=== PATIENT | male | born 1990 | race African-American/Black ===

== ENCOUNTER 2024-09-04 10:39 | Emergency (ER) | payer OTHER ==
[~2024-09-04] VITALS: Ht 175.3 cm; Wt 91.4 kg
--- NOTE | 2024-09-04 12:23 | ED.PDOC ---
History of Present Illness HPI Comments 33 year old male with no past medical history presents to the emergency department with a chief complaint of fever onset 1 week. Patient states he has been experiencing intermittent fevers for the past week as well as headache, body aches, abdominal pain, bilateral ear pain, chills, testicular pain. Patient took Ibuprofen for pain with no improvement of symptoms. He has been sexually active with multiple partners, does not use protection. No other symptoms or modifying factors present at this time. Denies nausea vomiting diarrhea Denies dysuria urgency frequency Denies history of UTI Denies blood in the urine or semen Denies recent instruments/toys and urethra Denies current tobacco use Denies family history of prostate issues Chief Complaint: Flu like Time Seen by MD: 12:15 Reviewed Notes: Nurses Notes, Medications, Allergies Information Source: Patient Mode of Arrival: Ambulatory Timing: Weeks Duration: Since onset Prehospital treatment: Pain Meds Severity: Moderate Context: Recent: Sore throat, Otitis media Symptoms: Fever, Chills, Ear pain, Sore throat Modifying Factors: Ibuprofen Associated Signs and Symptoms: Headache, Abdominal Pain Past Medical History PAST MEDICAL HISTORY: Denies Surgical History: Denies all surgeries Family History Family History: Unobtainable Social History Smoker: Non-Smoker Alcohol: Denies ETOH Use Drugs: Denies Drug Use Lives In: Home All Other Systems: Reviewed and Negative (as per HPI) Physical Exam General Appearance: Normal HEENT: Normal ENT Inspection, Pharynx Normal, TMs Normal Neck: Full Range of Motion, Non-Tender, Normal, Normal Inspection Respiratory: Chest Non-Tender, Lungs Clear, No Accessory Muscle Use, No Respiratory Distress, Normal Breath Sounds Cardiovascular: No Edema, No JVD, No Murmur, No Gallop, Normal Peripheral Pulses, Regular Rate/Rhythm Breast Exam: Deferred Gastrointestinal: No Organomegaly, Non Tender, No Pulsatile Mass, Normal Bowel Sounds, Soft Genitalia: Testicle (with no erythema, swelling, TTP, no high riding testie) Pelvic: Deferred Rectal: Deferred Extremities: No calf tenderness, Normal capillary refill, Normal inspection, Normal range of motion, Non-tender, No pedal edema Musculoskeletal : Apperance: Normal Neurologic: Alert, psychology fellow II-XII nml as Tested, No Motor Deficits, Normal Affect, Normal Mood, No Sensory Deficits Cerebellar Function: Normal Reflexes: Normal Skin: Dry, Normal Color, Warm Lymphatic: No Adenopathy Was a procedure done? Was a procedure done?: No X-Ray, Labs, Meds, VS Vital Signs Date Time Temp Pulse Resp B/P (MAP) Pulse Ox O2 Delivery O2 Flow Rate FiO2 09/04/24 13:28 98.0 95 18 157/114 (128) 97 98.0 09/04/24 10:45 97.6 98 18 161/110 (127) 97 97.6 Lab Test 09/04/24 13:04 09/04/24 12:00 Range/Units White Blood Count 12.2 H 4.4-10.8 10^3/uL Red Blood Count 6.91 H 4.5-5.90 10^6/uL Hemoglobin 16.3 13.5-17.5 g/dL Hematocrit 49.4 41.0-53.0 % Mean Corpuscular Volume 71.4 L 80.0-100.0 fL Mean Corpuscular Hemoglobin 23.6 L 28.0-32.0 pg Mean Corpuscular Hemoglobin Concent 33.0 32.0-36.0 g/dL Red Cell Distribution Width 15.7 H 11.8-14.3 % Platelet Count 480 H 140-450 10^3/uL Mean Platelet Volume 7.5 6.9-10.8 fL Neutrophils (%) (Auto) 66.1 37.0-80.0 % Lymphocytes (%) (Auto) 22.4 10.0-50.0 % Monocytes (%) (Auto) 9.9 0.0-12.0 % Eosinophils (%) (Auto) 0.8 0.0-7.0 % Basophils (%) (Auto) 0.8 0.0-2.0 % Neutrophils # (Auto) 8.0 1.6-8.6 10 ^3/uL Lymphocytes # (Auto) 2.7 0.4-5.4 10 ^3/uL Monocytes # (Auto) 1.2 0-1.3 10 ^3/uL Eosinophils # (Auto) 0.1 0-0.8 10 ^3/uL Basophils # (Auto) 0.1 0-0.2 10 ^3/uL Nucleated Red Blood Cells 0.0 % Sodium Level 138 136-145 mmol/L Potassium Level 4.6 3.5-5.1 mmol/L Chloride Level 102 98-107 mmol/L Carbon Dioxide Level 30 20-31 mmol/L Anion Gap 6 5-15 Blood Urea Nitrogen 10 9-23 mg/dL Creatinine 1.33 H 0.700-1.30 mg/dL Glomerular Filtration Rate Calc 72 >90 mL/min BUN/Creatinine Ratio 7.5 L 10.0-20.0 Serum Glucose 111 H 74-106 mg/dL Calcium Level 11.0 H 8.7-10.4 mg/dL Total Bilirubin 0.5 0.2-1.0 mg/dL Aspartate Amino Transferase (AST) 27 13-40 U/L Alanine Aminotransferase (ALT) 74 H 7-40 U/L Alkaline Phosphatase 129 H 46-116 U/L Total Protein 9.0 H 5.7-8.2 g/dL Albumin 5.5 H 3.2-4.8 g/dL Lipase 29 12-53 U/L Urine Color Light-yellow Yellow Urine Clarity Clear Clear Urine pH 5.5 5.0-9.0 Urine Specific [place] 1.016 1.001-1.035 Urine Protein 1+ H Negative Urine Ketones Negative Negative Urine Blood 1+ H Negative /uL Urine Nitrite Negative Negative Urine Bilirubin Negative Negative Urine Urobilinogen Normal Negative mg/dL Urine Leukocyte Esterase Negative Negative /uL Urine RBC 37 0 - 3 /hpf Urine Microscopic WBC 1 0-3 /HPF Urine Squamous Epithelial Cells Few <5 /hpf Urine Bacteria None seen None Seen /hpf Urine Glucose Normal Normal mg/dL Chlamydia trachomatis (ERICKSON) Pending Neisseria gonorrhoeae ([facility]ICKSON) Pending [place] [id number] Ph: [phone] DIAGNOSTIC IMAGING Diagnostic Imaging Report : [id number] Signed PATIENT: BULMARO NOYOLA ACCT: [id number] UNIT: [id number] : 1990 LOC: ER ROOM / BED: / AGE / SEX: 33 / M ADM STATUS: REG ER SERVICE 1220 ORDERING PHYSICIAN: EREN DOTSON NP PROCEDURE(s): TESUS - TESTICULAR ULTRASOUND REASON: Testicular pain ORDER NUMBER(s): [id number], ACCESSION NUMBER(s): [id number] ULTRASOUND OF SCROTUM AND CONTENTS. INDICATION: Testicular pain COMPARISON: None TECHNIQUE: Multiple real-time grayscale sonographic and color and duplex Doppler images of the scrotum and its contents were obtained. FINDINGS: The right testicle measures 4 cm. The left testicle measures 4 cm. Both testicles demonstrate homogeneous echotexture without evidence of focal lesions. The right epididymal head measures 1.6 cm. The left epididymal head measures 1.2 cm. Subsequent color and duplex Doppler interrogation of the testes demonstrated symmetric normal vascular flow to both testicles. No focal areas of hyperemia were seen. Bilateral microlithiasis. Small bilateral hydroceles. IMPRESSION: 1. No evidence of torsion, epididymitis, and/or orchitis. ATED BY: MARIANO ROJAS MD DICTATED DATE/TIME: 09/04/241320 SIGNED BY: MARIANO ROJAS MD SIGNED DATE/TIME: 09/04/241320 CC: X-Ray, Labs, Meds, VS Comment 33 year old male with no past medical history presents to the emergency department with a chief complaint of fever onset 1 week. Patient arrives alert and oriented, ABC's intact, afebrile, vital signs stable, saturating well in room air labs were ordered. CBC was ordered to exclude anemia, blood loss, or infection. CMP was ordered to exclude electrolyte abnormalities, renal failure, dehydration, hyperglycemia and/or liver enzyme abnormalities. Urinalysis was ordered to rule out UTI or hematuria. Lipase was ordered. Diagnostic imaging ordered by me and results interpreted by radiology : US TESTICULAR: IMPRESSION: 1. No evidence of torsion, epididymitis, and/or orchitis. Labs in the ED showed (pertinent+ and then pertinent-) Additional MDM Review of External, Non-ED records: External records reviewed. Discussion with independent historian (EMS, family) history obtained from the patient/parents (if applicable) at bedside Chronic conditions affecting care: None Social determinants of health affecting care: None Consideration of admission (observation or admission): I considered escalation of care to admission for this patient, however given the reassuring workup, the patient is safe for outpatient management. Time of 1ST Reevaluation: 12:45 Reevaluation 1ST: Improved Patient Education/Counseling: Diagnosis, Treatment Family Education/Counseling: No Family Present SEPSIS Sepsis Screen Date sepsis recognized/suspect: Sep 04, 2024 Time Sepsis recognized/suspect: 1044 Recent Procedure: No On Antibiotic Therapy: No Respiratory Rate >20: No Heart Rate >90: Yes Temp<36 C (96.8 F) or >38.3 C: No SBP <90 or MAP <65 mmHG: No New Acute Mental Status Change: No Is the patient on CPAP, BIPAP,: No Physician Orders Chlamydia/Gc Amplification (09/04/24 12:20) Testicular Ultrasound (09/04/24 12:20) Vital Signs Date Time Temp Pulse Resp B/P (MAP) Pulse Ox O2 Delivery O2 Flow Rate FiO2 09/04/24 13:28 98.0 95 18 157/114 (128) 97 98.0 09/04/24 10:45 97.6 98 18 161/110 (127) 97 97.6 Laboratory Tests Test 09/04/24 13:04 White Blood Count 12.2 10^3/uL (4.4-10.8) H Departure 1 Departure Time of Disposition: 14:56 Impression: Primary Impression: Viral syndrome Disposition: 01 HOME / SELF CARE / HOMELESS Condition: Fair e-Prescriptions Naproxen (Naproxen) 500 Mg Tab 500 MG PO BIDPC for 10 Days, #20 TAB 0 Refills Prov: EREN DOTSON ORDER PROCESSING CLERK 09/04/24 Amoxicillin & Pot Clavulanate (AUGMENTIN TABLET) 875 Mg Tb 875 MG PO BID for 7 Days, #14 TAB 0 Refills Prov: EREN DOTSON ORDER PROCESSING CLERK 09/04/24 Critical Care Note Critical Care Time?: No Stability Stability form required: No Heart Score Heart Score: Heart Score Response (Comments) Value History N/A 0 EKG N/A 0 Age N/A 0 Risk Factors N/A 0 Troponin N/A 0 Total 0 I personally scribed for EREN DOTSON ORDER PROCESSING CLERK ([email or web address]) on 09/04/24 at 12:23. Electronically submitted by Ana Luisa Bender ([email or web address]). I personally scribed for EREN DOTSON NP ([email or web address]) on 09/04/24 at 12:29. Electronically submitted by Ana Luisa Bender ([email or web address]). I personally scribed for REEN DOTSON ORDER PROCESSING CLERK (Desk) on 09/04/24 at 12:30. Elec tronically submitted by Ana Luisa Bender ([email or web address]). I personally scribed for EREN DOTSON NP (Desk) on 09/04/24 at 13:47. Electronically submitted by Ana Luisa Bender ([email or web address]). EREN DOTSON NP Sep 04, 2024 12:23
--- NOTE | 2024-09-04 13:23 | DVH ---
ULTRASOUND OF SCROTUM AND CONTENTS. INDICATION: Testicular pain COMPARISON: None TECHNIQUE: Multiple real-time grayscale sonographic and color and duplex Doppler images of the scrotu m and its contents were obtained. FINDINGS: The right testicle measures 4 cm. The left testicle measures 4 cm. Both testicles demonstrate homogeneous echotexture without evidence of focal lesions. The right epididymal head measures 1.6 cm. The left epididymal head measures 1.2 cm. Subsequent color and duplex Doppler interrogation of the testes demonstrated symmetric normal vascula r flow to both testicles. No focal areas of hyperemia were seen. Bilateral microlithiasis. Small bilateral hydroceles. IMPRESSION: 1. No evidence of torsion, epididymitis, and/or orchitis.
[2024-09-04 13:27] LABS: Hematocrit 49.4 % (41.0-53.0); Hemoglobin 16.3 g/dL (13.5-17.5); Mean Corpuscular Hemoglobin 23.6 pg (28.0-32.0); Mean Corpuscular Volume 71.4 fL (80.0-100.0); Nucleated Red Blood Cells % 0.0 %
[2024-09-04 13:28] VITALS: BP 157/114; PULSE 95; RESP 18; TEMP 98; O2SAT 97
[2024-09-04 13:36] LABS: Urine Protein, UAD 1+ (Negative)
[2024-09-04 13:39] LABS: Anion Gap 6 (5-15); BUN/Creatinine Ratio 7.5 (10.0-20.0); Blood Urea Nitrogen 10 mg/dL (9-23); Carbon Dioxide 30 mmol/L (20-31); Chloride 102 mmol/L (98-107); Potassium 4.6 mmol/L (3.5-5.1); Sodium 138 mmol/L (136-145)
[2024-09-04 13:40] LABS: Bilirubin, Total 0.5 mg/dL (0.2-1.0)
[2024-09-04 13:44] LABS: Alanine Aminotransferase 74 U/L (7-40); Alkaline Phosphatase 129 U/L (46-116); Calcium 11.0 mg/dL (8.7-10.4); Glucose 111 mg/dL (74-106)
[2024-09-04 13:45] LABS: Albumin 5.5 g/dL (3.2-4.8); Total Protein 9.0 g/dL (5.7-8.2)
[2024-09-04 13:47] LABS: Lipase 29 U/L (12-53)
[2024-09-04] MEDS ORDERED: NAPR-746 PO (14:57)
[2024-09-04] MEDS ORDERED: AUG875T PO (14:57)
[2024-09-06 03:07] LABS: Chlamydia Trachomatis, NAA Positive (Negative); Neisseria gonorrhoeae, NAA Negative (Negative)
== END 2024-09-04 15:13 | disposition home or self-care (01) ==
LOC: ER 10:39
DX: B34.9 Viral infection, unspecified (principal); N50.819 Testicular pain, unspecified
CPT/HCPCS: 36415; 76870; 80053; 81001; 83690; 85025